=== PATIENT | male | born 1955 | race African-American/Black ===

== ENCOUNTER 2018-04-04 08:56 | Outpatient (CLI) | payer OTHER ==
[2015-03-23 17:22] VITALS: BP 101/61
== END 2018-04-04 10:46 ==
LOC: LAB 08:56
PROVIDERS: ATTEND Family Medicine
DX: E03.9 Hypothyroidism, unspecified (principal)
CPT/HCPCS: 36415; 84443

== ENCOUNTER 2018-07-11 09:21 | Outpatient (CLI) | payer OTHER ==
[2015-03-23 17:22] VITALS: BP 101/61
[2018-07-13 11:52] LABS: eGFR (Non-African) > 60
== END 2018-07-11 13:13 ==
LOC: LAB 09:21
PROVIDERS: ATTEND Family Medicine
DX: E03.9 Hypothyroidism, unspecified (principal); E11.9 Type 2 diabetes mellitus without complications
CPT/HCPCS: 36415; 80053; 80061; 83036; 84443

== ENCOUNTER 2019-01-02 12:18 | Outpatient (CLI) | payer OTHER ==
[2015-03-23 17:22] VITALS: BP 101/61
--- NOTE | 2019-01-02 17:15 | Diagnostic Imaging Report ---
HERMAN AGUILERA [facility] [address] [facility].[address] [address] Report Submission Date: Jan 02, 2019 4:21:37 PM CDT Patient Study Name: MONTSERRAT BAJWA Date: Jan 02, 2019 12:43:48 PM CDT Modality Type: DX Gender: M Description: CHEST 2VIEW : 55 Institution: [facility] Physician: HERMAN AGUILERA CHEST 2VIEW HISTORY: COMFORT CHEST PAIN X 2 MONTHS. FINDINGS: PA and lateral chest x-ray demonstrate lungs to be clear of focal infiltrates and expanded bilaterally. Cardiac silhouette and bony thorax are within normal limits. IMPRESSION: No active intrathoracic disease seen. Electronically signed on Jan 02, 2019 4:21:37 PM CDT by: Brandt TAYLOR
== END 2019-01-02 12:20 ==
LOC: RT 12:18
PROVIDERS: ATTEND Family Medicine
DX: R07.9 Chest pain, unspecified (principal); E11.9 Type 2 diabetes mellitus without complications
CPT/HCPCS: 36415; 71046; 82043; 83036; 84439; 84443; 84481